=== PATIENT | female | born 1960 | race Caucasian/White ===

== ENCOUNTER → 2016-05-31 | Outpatient (CLI) | payer OTHER ==
[~2016-05-31] MED LIST: ASPIRIN (CHILDR81 MG PO; COZAAR100 MG PO; CYMBALTA30 MG PO; EEMT DS 1.25-21 EACH PO; GLUCAGON HCL1 MG SUB-Q; GLUCOPHAGE1000 MG PO; GLUCOSE4 GM PO; INVOKANA300 MG PO; LEVEMIR FL100 UNIT/1 SUB-Q; LINZESS145 MCG; MIRALAX17 GM PO; MOBIC7.5 MG PO; NEURONTIN300 MG PO; NORVASC5 MG PO; NOVOLOG FL100 UNIT/1 SUB-Q; PRAVACHOL40 MG PO; PRILOSEC20 MG PO; PRINIVIL OR ZES10 MG PO; TRANDATE OR NO100 MG PO
== END | disposition disaster alternative care site (69) ==
LOC: GNUT 09:00
DX: E11.8 Type 2 diabetes mellitus with unspecified complications (principal)

== ENCOUNTER → 2016-06-18 | Outpatient (CLI) | payer OTHER ==
--- NOTE | ~2016-06-18 | PUL ---
PATIENT'S NAME: GAYE JACOBSON [facility] AGE: 55 Y [address] ROOM: [place] [id number] LOCATION: [facility] ADMIT DATE: 06/18/2016 Pulmonary DISCHARGE DATE: FAMILY PHYSICIAN: Varghese Fernandez MD ATTENDING PHYSICIAN: BRAIN XIAO NAME OF PROCEDURE: Sleep study DATE OF PROCEDURE: 06/18/16 TECH: HENRY Poe TEST #: [facility] [place]# [id number] MEDICAL HISTORY: The patient is a 55-year-old woman with persistent difficulty maintaining wakefulness and snoring. SLEEP STAGE SUMMARY: The patient was studied for 508 minutes of which she slept 420 minutes. She fell asleep in 4 minutes and slept for 83% of the night. Sleep architecture revealed a decline in slow wave and REM sleep. RESPIRATORY SUMMARY: Oxygen saturations ranged from 78-90% and were below 88% for 115 minutes. Prior to initiating CPAP there was 1 apnea and 83 hypopneas for an apnea/hypopnea index elevated at 19.5 events per hour. CPAP was initiated and titrated to 10 cm with good control of the respiratory events. EKG SUMMARY: No dysrhythmias were noted. LIMB MOVEMENT SUMMARY: No clinically relevant periodic limb movements were noted. SUMMARY: Moderate obstructive sleep apnea responsive to CPAP at 10 cm. PLAN: Suggest CPAP at 10 cm. Patient will receive results from the ordering provider. JOSSIE LIZ MD [facility]/ /[id number] dtt: 06/22/16 1303 , Jossie Liz dtd: 06/21/16 1325
== END | disposition disaster alternative care site (69) ==
LOC: GSLP 20:27
DX: G47.19 Other hypersomnia (principal); G47.33 Obstructive sleep apnea (adult) (pediatric); I63.9 Cerebral infarction, unspecified; R06.83 Snoring

== ENCOUNTER → 2016-06-18 | Outpatient (CLI) | payer OTHER | END | disposition disaster alternative care site (69) | LOC: GNUT 15:28 | DX: E11.8 Type 2 diabetes mellitus with unspecified complications (principal) | CPT/HCPCS: G0270 ==

== ENCOUNTER → 2016-08-21 | Outpatient (CLI) | payer OTHER | END | disposition disaster alternative care site (69) | LOC: GRAD 08:14 | DX: E11.65 Type 2 diabetes mellitus with hyperglycemia (principal); R74.8 Abnormal levels of other serum enzymes ==

== ENCOUNTER 2016-10-22 13:17 | Emergency (ER) | payer OTHER ==
--- NOTE | ~2016-10-22 | ER ---
PATIENT'S NAME: GAYE JACOBSON [facility] AGE: 55 Y [address] ROOM: [place], [place] [address] LOCATION: [facility] ADMIT DATE: 10/22/2016 ER/Outpatient Report DISCHARGE DATE: 10/22/2016 FAMILY PHYSICIAN: Varghese Fernandez MD ATTENDING PHYSICIAN: J Luis Nathan CHIEF COMPLAINT: Right arm and shoulder pain. HISTORY OF PRESENT ILLNESS: Ms. Jacobson was out for a walk today when she tripped. She fell landing on her right arm. She has pain throughout her arm including her shoulder, elbow, wrist, most notably her thumb and pinky. She has not taken anything for it. She is in significant amount of pain. This accident happened just prior to arrival. No other collateral information is relevant. She also notes some scrapes to her knee. PAST MEDICAL HISTORY: Documented on the record and reviewed by me. SOCIAL HISTORY: Documented on the record and reviewed by me. MEDICATIONS: Documented on the record and reviewed by me. ALLERGIES: DOCUMENTED ON THE RECORD AND REVIEWED BY ME. REVIEW OF SYSTEMS: All systems reviewed and negative except as noted in the HPI. PHYSICAL EXAMINATION: VITAL SIGNS: Blood pressure 227/116, pulse 90, respiratory rate is 20, temperature 97.6, and SpO2 is 93% on room air. Pain is rated at 10/10. GENERAL: An age-appropriate female, sitting upright on the exam chair, in obvious pain. No respiratory distress. NEUROLOGIC: Awake and alert. GCS appears to be 15. No focal deficits. No asymmetry other than limited to the right upper extremity secondary to pain. HEENT: Normocephalic, atraumatic. Eyes are PERRL. Oropharynx is clear. NECK: Supple. Trachea is midline. CHEST: Heart has regular rate and rhythm with no murmurs. LUNGS: Clear to auscultation bilateral. No rhonchi, wheezes, or rales. ABDOMEN: Soft, nontender, nondistended. No rebound or guarding. BACK: Normal to inspection and palpation. No spinal or paraspinal tenderness PATIENT'S NAME: GAYE JACOBSON [facility] AGE: 55 Y [address] ROOM: [place], [place] [address] LOCATION: [facility] ADMIT DATE: 10/22/2016 ER/Outpatient Report DISCHARGE DATE: 10/22/2016 FAMILY PHYSICIAN: Varghese Fernandez MD ATTENDING PHYSICIAN: J Luis Nathan throughout the C-spine, T-spine, and L-spine. EXTREMITIES: Warm and well perfused with no gross abnormalities except for the right upper extremity. Any motion of the shoulder is extremely painful. The patient resists but is able to range the elbow and wrist. They are tender to palpation diffusely over the joints. The patient is able to make thumbs up, okay sign, thumb to pinky, and flex and extend at the MCP and wrist joints as well as all the finger joints. It is weak secondary to pain, but is functional. No appreciable sensory deficits of the arm. The patient appears to be able to activate the deltoid, but is exquisitely painful. SKIN: There are some contusions and abrasions to the right knee, otherwise intact. No obvious rashes. LABORATORY DATA AND X-RAYS: Plain films of the shoulder reveal a humeral head fracture. Plain films of the elbow appeared to be normal. Plain films of the wrist show some very unusual projections of the pisiform and scaphoid. Comparison film from 2008 reveals pisiform to be laterally displaced previously, which makes pisiform dislocation unlikely; however, scaphoid remains questionable, particularly with the patient's pain at the base of the thumb and the wrist. CT scan of the shoulder and wrist were obtained at the request of the orthopedic team and revealed an impacted humeral head fracture as well as a poor reconstruction views of the wrist, but no clear fracture. IMPRESSION: 1. Right impacted humeral head fracture. 2. Wrist pain with no clearly identifiable fracture. 3. Scrape to the right knee. EMERGENCY DEPARTMENT COURSE: The patient was seen and evaluated as above. Her pain was controlled with morphine and fentanyl. She ultimately received a total of 4 doses of pain medication. This allowed her to tolerate everything well. She did receive some Toradol as well. This was done to help facilitate imaging. Ultimately, the case was discussed with Dr. Kessler, on-call provider for [facility], with whom the patient has had procedures previously. She would desire to stay with that clinic. The CT was ordered at their request. The patient is to follow up with Dr. Parmar later this week for further evaluation. She was placed in a shoulder immobilizer and cock-up wrist splint and discharged home with a prescription for hydrocodone. She needs to follow up sooner if needed. She is to return immediately if there is other concerns. J LUIS NATHAN MD PATIENT'S NAME: GAYE JACOBSON [facility] AGE: 55 Y [address] ROOM: [place] [address] LOCATION: [facility] ADMIT DATE: 10/22/2016 ER/Outpatient Report DISCHARGE DATE: 10/22/2016 FAMILY PHYSICIAN: Varghese Fernandez MD ATTENDING PHYSICIAN: J Luis Nathan/tiffanie /[id number] d: 10/23/16735 t: 10/27/16730, OUTPATIENT REPORT
== END 2016-10-22 18:28 | disposition disaster alternative care site (69) ==
LOC: GACC 13:17
PROC: 2W3CX1Z Immobilization of Right Lower Arm using Splint (ICD-10-PCS; principal; 2016-10-22)
DX: S42.211A Unspecified displaced fracture of surgical neck of right humerus, initial encounter for closed fracture (principal); S80.211A Abrasion, right knee, initial encounter; M25.531 Pain in right wrist; E11.9 Type 2 diabetes mellitus without complications; E03.9 Hypothyroidism, unspecified; E78.00 Pure hypercholesterolemia, unspecified; I10 Essential (primary) hypertension; Z98.890 Other specified postprocedural states; Z86.73 Personal history of transient ischemic attack (TIA), and cerebral infarction without residual deficits; W01.0XXA Fall on same level from slipping, tripping and stumbling without subsequent striking against object, initial encounter; Y93.01 Activity, walking, marching and hiking
CPT/HCPCS: J1885; J2270; J3010